=== PATIENT | male | born 1990 | race Caucasian/White ===

== ENCOUNTER 2018-04-08 09:13 | Emergency (ER) | payer OTHER ==
[2018-04-08 09:26] VITALS: BP 148/62; PULSE 69; TEMP 98.3; BMI 33.6
--- NOTE | 2018-04-08 10:13 | PDOC ---
History of Present Illness - General Chief Complaint: Eye Problem Stated Complaint: PINK EYE Time Seen by Provider: 04/08/18 09:47 History Source: Patient - History of Present Illness Initial Comments: 04/08/18 10:08 28 year old male diagnosed with conjunctivitis here with eye redness drainage. patient is currently on erythromycin ointment. reports itchy eyes and drainage to the eye not any better. denies vision changes or eye pain. 04/08/18 10:27 Past History - Past Medical History Allergies/Adverse Reactions: Allergies Allergy/AdvReac Type Severity Reaction Status Date / Time No Known Allergies Allergy Verified 09/01/13 11:25 Home Medications: Ambulatory Orders Cromolyn Sodium [Crolom -] 1 drop OP Q6H #1 bottle 04/08/18 Anemia: No Asthma: No Cancer: No Cardiac Disorders: No CVA: No COPD: No CHF: No Dementia: No Diabetes: No GI Disorders: No Disorders: No HTN: No Hypercholesterolemia: No Liver Disease: No Seizures: No Thyroid Disease: No - Surgical History Abdominal Surgery: No Appendectomy: No Cardiac Surgery: No Cholecystectomy: No Lung Surgery: No Neurologic Surgery: No Orthopedic Surgery: Yes (Removal of Mas Right Foot) - Immunization History Immunization Up to Date: Yes - Suicide/Smoking/Psychosocial Hx Smoking History: Never smoked Have you smoked in the past 12 months: Yes Information on smoking cessation initiated: No Hx Alcohol Use: No Drug/Substance Use Hx: No Substance Use Type: None Hx Substance Use Treatment: No Review of Systems - Review of Systems Able to Perform ROS?: Yes Is the patient limited Croatian proficient: No HEENTM: Yes: Tearing (itchy eyes) *Physical Exam - Vital Signs Last Vital Signs Temp Pulse Resp BP Pulse Ox 98.3 F 69 16 148/62 95 04/08/18 09:22 04/08/18 09:22 04/08/18 09:22 04/08/18 09:22 04/08/18 09:22 - Physical Exam General Appearance: Yes: Appropriately Dressed HEENT: positive: Other (snellen 20/30 both eyes. PERRLA, matted eye with drainage) Moderate Sedation - Procedure Monitoring Vital Signs: Procedure Monitoring Vital Signs Temperature 98.3 F 04/08/18 09:22 Pulse Rate 69 04/08/18 09:22 Respiratory Rate 16 04/08/18 09:22 Blood Pressure 148/62 04/08/18 09:22 O2 Sat by Pulse Oximetry (%) 95 04/08/18 09:22 *DC/Admit/Observation/Transfer Diagnosis at time of Disposition: Acute allergic conjunctivitis of both eyes - Discharge Dispostion Disposition: HOME - Prescriptions Prescriptions: Cromolyn Sodium [Crolom -] 1 drop OP Q6H #1 bottle - Referrals Referrals: John Aleman MD [Primary Care Provider] - Obey Healy MD [Staff Physician] - Call tomorrow - Patient Instructions Printed Discharge Instructions: Conjunctivitis (Alternative Therapy) Additional Instructions: use the cromyln drops as prescribed. you may use erythromycin ointment. follow up with an eye doctor as soon as possible. - Post Discharge Activity Forms/Work/School Notes: Back to Work
== END 2018-04-08 10:36 | disposition home or self-care (01) ==
LOC: JERFT 09:13
DX: H10.33 Unspecified acute conjunctivitis, bilateral (principal)
CPT/HCPCS: 99281-25

== ENCOUNTER 2018-11-17 23:33 | Emergency (ER) | payer OTHER | END 2018-11-18 02:55 | disposition home or self-care (01) | LOC: JER 23:33 ==

== ENCOUNTER 2024-02-11 09:29 | Emergency (ER) | payer OTHER ==
[2024-02-11 09:41] VITALS: BP 146/78; PULSE 106; RESP 20; TEMP 98.2; BMI 36.0
[2024-02-11] MEDS ORDERED: predniSONE 20 MG TABLET (UD) ONE (10:25)
[2024-02-11] MEDS ORDERED: FAMOTIDINE 20 MG TABLET ONE (10:25)
[2024-02-11] MEDS: FAMOTIDINE 20 MG TABLET PO ONE (10:28)
[2024-02-11] MEDS: predniSONE 20 MG TABLET (UD) PO ONE (10:28)
== END 2024-02-11 11:28 | disposition home or self-care (01) ==
LOC: JERFT 09:29 → JER 09:29
DX: R21 Rash and other nonspecific skin eruption (principal); L29.9 Pruritus, unspecified; T78.40XA Allergy, unspecified, initial encounter
CPT/HCPCS: 93005; 93010; 99283-25